=== PATIENT | male | born 1990 | race Caucasian/White ===

== ENCOUNTER 2020-11-29 09:31 | Outpatient (CLI) | payer OTHER | END 2020-11-29 09:32 | disposition home or self-care (01) | LOC: BICMAMMO 09:31 | PROVIDERS: ATTEND Otolaryngology Plastic Surgery within the Head & Neck | DX: Z13.820 Encounter for screening for osteoporosis (principal); M54.5 Low back pain | CPT/HCPCS: 77080 ==

== ENCOUNTER 2021-02-08 11:36 | Outpatient (CLI) | payer OTHER | END 2021-02-08 11:37 | disposition home or self-care (01) | LOC: BICRAD 11:36 | PROVIDERS: ATTEND Orthopaedic Surgery Orthopaedic Surgery of the Spine | DX: M54.5 Low back pain (principal); Z98.890 Other specified postprocedural states | CPT/HCPCS: 72100 ==